=== PATIENT | female | born 1985 | race Two or more races ===

== ENCOUNTER 2020-03-25 06:10 | Inpatient (IN) | payer OTHER ==
[2020-03-22 12:24] VITALS: BMI 27.1
[2020-03-25] MEDS ORDERED: VASOPRESSIN 20 UNITS/ML VIAL IV ONE (07:20)
[2020-03-25] MEDS ORDERED: fentaNYL CITRATE 250 MCG/5 ML VIAL ONE ×2 (07:23→08:51)
[2020-03-25] MEDS ORDERED: ROCURONIUM BROMIDE IVPB ONE (07:23)
[2020-03-25] MEDS ORDERED: PROPOFOL 20 ML ONE ×2 (07:23→10:33)
[2020-03-25] MEDS ORDERED: DEXAMETHASONE SOD PHOSPHATE 4 MG/1 ML VIAL ONE (07:24)
[2020-03-25] MEDS ORDERED: KETOROLAC TROMETHAMINE 30 MG/1 ML VIAL ONE (07:24)
[2020-03-25] MEDS ORDERED: ceFAZolin SODIUM 1 GM VIAL ONE (07:24)
[2020-03-25] MEDS ORDERED: BUPIVACAINE HCL/PF 0.25% (2.5MG/ML) 10 ML VIAL ONE (08:02)
[2020-03-25] MEDS ORDERED: DEXAMETHASONE SOD PHOSPHATE/PF 10 MG/ML SDV ONE (08:02)
[2020-03-25] MEDS ORDERED: MIDAZOLAM HCL 2 MG/2 ML SINGLE DOSE VIAL ONE ×2 (08:04)
--- NOTE | 2020-03-25 08:29 | HP ---
[facility] - Chief Complaint Chief Complaint: Leiomyomatous uterus History of Present Illness: 34 yo with leiomyomatous uterus and menorrhagia for abdominal myomectomy History Source: Patient Limitations to Obtaining History: No Limitations - Past Medical History Allergies/Adverse Reactions: Allergies Allergy/AdvReac Type Severity Reaction Status Date / Time Penicillins Allergy Intermediate Verified 03/25/20 07:37 nuts Allergy Severe Swelling Uncoded 03/25/20 07:37 ...LMP: 03/15/20 ...: No Heme/Onc: Yes: Anemia - Current Medications Current Medications: Home Medications Medication Instructions Recorded Esomeprazole Magnesium 40 mg PO DAILY 03/22/20 Ferrous Sulfate [Feosol] 325 mg PO DAILY 03/22/20 Semaglutide [Ozempic] 1 mg SQ WEEKLY 03/22/20 Venlafaxine HCl ER [Effexor Xr -] 37.5 mg PO DAILY 03/22/20 [facility]ellite Physical Exam - Physical Examination Vital Signs: Vital Signs Period Temp Pulse Resp BP Sys/Welch Pulse Ox Last 24 Hr 97.7 F 68 20 88/55 100 General Appearance: Well Nourished, Well Developed ENT: Clear Lung: Clear to auscultation Heart: Regular rate & rhythm Breasts: Soft, No masses bilaterally Abdomen: Soft Extremities: No edema Pelvic Exam: Within normal limits External Genitalia, Within normal limits Vagina, Within normal limits Cervix, Within normal limits [place], Other Uterus (15) Neurological: Intact, Alert, Oriented [facility]ellite Impression/Plan - Impression/Plan Impression: Leimyomatous uterus. Menorrhagia. anemai Operative Procedure: Abdominal myomectomy Date to be Performed: 03/25/20
[2020-03-25] MEDS ORDERED: NEOSTIGMINE METHYLSULFATE 0.5 MG/ML - 10 ML MDV ONE (09:31)
[2020-03-25] MEDS ORDERED: ACETAMINOPHEN 325 MG TABLET (FP) PO PRN (10:53)
[2020-03-25] MEDS ORDERED: oxyCODONE HCL 5 MG TABLET PO PRN (10:53)
[2020-03-25] MEDS ORDERED: DOCUSATE SODIUM 100 MG CAPSULE (FP) PO PRN (10:53)
[2020-03-25] MEDS ORDERED: ONDANSETRON 4 MG/2 ML VIAL IVPUSH PRN (10:53)
[2020-03-25] MEDS ORDERED: BISACODYL 5 MG TABLET.DR (FP) PO PRN (10:53)
[2020-03-25] MEDS ORDERED: LACTATED RINGERS SOLUTION 1,000 ML IV SCH (11:00)
[2020-03-25] MEDS ORDERED: ACETAMINOPHEN 1000 MG/100 ML VIAL (NON FORMULARY) IVPB ONE (11:01)
--- NOTE | 2020-03-25 11:04 | OP ---
Operative Note - Note: Operative Date: 03/25/20 Pre-Operative Diagnosis: Fibroids Operation: Open abdominal myomectomy, right ovarian cystectomy Findings: as dictated Post-Operative Diagnosis: Same as Pre-op Surgeon: Emelia Cummings Animal Care Provider: Hang Pike Anesthesiologist/SANDING LINE OPERATOR: Omar Ramos Anesthesia: General (Tap blocks) Specimens Removed: 15 myomas of various sizes, right ovarian cyst wall Estimated Blood Loss (mls): 100 Drains, Volume Out (mls): 150 (yellow urine) Fluid Volume Replaced (mls): 800 (ml LR) Operative Report Dictated: Yes
--- NOTE | 2020-03-25 11:07 | SURG ---
Surgery Car Parker Note Car Parker: Hang Pike PA-C (Suzy) Date of Service: 03/25/20 Diagnosis: Fibroids Procedure: Open abdominal myomectomy, right ovarian cystectomy I was present for the entirety of the operative procedure. For further detail, please refer to operative report. Visit type - Case Type Case Type: Scheduled - Emergency Emergency Visit: No - New patient This patient is new to me today: Yes Date on this admission: 03/25/20 - Critical Care Critical Care patient: No
[2020-03-25] MEDS ORDERED: HYDROmorphone HCl 2 MG/ML VIAL IVPUSH ONE (12:38)
[2020-03-25] MEDS ORDERED: HYDROmorphone HCl 2 MG/ML VIAL ONE (12:42)
[2020-03-25] MEDS ORDERED: HYDROmorphone HCl 2 MG/ML VIAL IVPB ONE (15:04)
[2020-03-25] MEDS ORDERED: HYDROmorphone HCL CARPU-JECT 2 MG/1 ML DISP.SYRIN IVPB ONE (15:04)
[2020-03-25] MEDS ORDERED: CEFAZOLIN 1 GM/D5W 1 GM/50 ML BAG IVPB SCH (16:00)
[2020-03-25] MEDS: CEFAZOLIN 1 GM/D5W 1 GM/50 ML BAG IVPB SCH (18:46)
[2020-03-25] MEDS: SODIUM CHLORIDE 1,000 ML IV SCH (18:49)
[2020-03-25] MEDS: IBUPROFEN 800 MG/8 ML IJ IVPB PRN (19:45)
[2020-03-25 21:02] LABS: HEMATOCRIT 37.3 % (32.4-45.2); HEMOGLOBIN 11.9 GM/dL (10.7-15.3); MCH 25.1 pg (25.7-33.7); MCHC 31.8 g/dl (32.0-36.0); MEAN PLT VOLUME 9.6 fl (7.5-11.1); PLATELET COUNT 185 K/MM3 (134-434); RBC 4.73 M/mm3 (3.60-5.2); RDW 19.8 % (11.6-15.6); WHITE BLOOD COUNT 15.2 K/mm3 (4.0-10.0)
[2020-03-25 21:24] LABS: BLOOD UREA NITROGEN 7.7 mg/dL (7-18); CALCIUM 8.3 mg/dL (8.5-10.1); CREATININE 0.9 mg/dL (0.55-1.3); POTASSIUM 4.3 mmol/L (3.5-5.1)
[2020-03-26] MEDS: oxyCODONE HCL 5 MG TABLET PO PRN ×3 (00:42→19:05)
[2020-03-26] MEDS: SIMETHICONE 80 MG TAB.CHEW (FP) PO PRN ×2 (00:43→10:05)
--- NOTE | 2020-03-26 00:47 | OP ---
DATE OF OPERATION: 03/25/2020 PREOPERATIVE DIAGNOSIS: Leiomyomatous uterus. POSTOPERATIVE DIAGNOSIS: Leiomyomatous uterus. OPERATION: Abdominal myomectomy and right ovarian cystectomy. SURGEON: Cassi Cummings MD. BALLAST INSPECTOR: AMIRAH Ordaz. ANESTHESIA: General. ANESTHESIOLOGIST: Aung Ramos MD. PROCEDURE: Patient was taken to the operating room, placed in supine position. Prepped and draped in usual sterile fashion. Pfannenstiel skin incision was made with the scalpel. Cautery was then used to go through layers of abdominal wall to the layers of fascia. Fascia was cut in the midline. Cautery was then used to open the fascia in a smiley fashion. Cem was then used to bluntly and sharply dissect the rectus muscles off the fascia. Muscle was split in the midline. Peritoneal cavity was entered, carried up and down. Leiomyomatous uterus was then exteriorized. Multiple myomas were palpated throughout the anterior and posterior aspect of the uterus. The uterus was exteriorized, and tourniquet was placed around the clear space of the broad ligament. Pitressin was then infiltrated both anterior and posterior. Transverse incision posterior remained after the pitressin was infiltrated approximately 6 cm. Myomas were removed using sharp and blunt technique. They were enucleated out. 2 Multiple large myomas were seen from the posterior aspect of the uterus and submitted. The stitches were then closed using 2-0 Vicryl suture in a continuous locking stitch followed by imbricating stitch with 2-0 V-Loc suture. Attention was then drawn to the anterior aspect of the uterus where two 3-cm myomas were palpated anteriorly. Myomas were then enucleated after cautery was then used to make an incision into serosa and muscles of uterus, and the cavity was then entered, and 2-cm myomas were removed. Multiple myomas were removed from the right side of the multiple myomas, and then cautery was used to cut the serosa and muscles, and the instrument was then used to grab the myomas, they were enucleated out. Anteriorly there were more myomas I removed, approximately 15 myomas removed out of the uterus both the anterior, posterior, and also on the right side of the uterus. Right ovarian cyst was noted, and that was removed and submitted to pathology. Cautery of the ovary was then done. Incisions were all closed using 2-0 Vicryl suture in a continuous locking stitch followed by 2-0 V-Loc suture on all the incisions. Interceed was then used to cover both anteriorly and posteriorly, and Interceed was then sewn onto the uterus. Hemostasis was achieved, uterus interiorized. Abdominal cavity cleaned with clean lap pads. Peritoneum closed using 0 Biosyn suture. Muscles approximated in the midline using 2-0 Vicryl sutures. Fascia then closed using 0 Vicryl sutures in 2 parts. Skin was then closed using 3-0 Vicryl in subcuticular fashion. The wound was washed and dressed. Patient tolerated procedure well. Taken to recovery in stable condition. ESTIMATED BLOOD LOSS: Approximately 100 mL. CASSI CUMMINGS M.D. [id number] MTDD
[2020-03-26] MEDS: CEFAZOLIN 1 GM/D5W 1 GM/50 ML BAG IVPB SCH ×2 (02:25→11:35)
[2020-03-26] MEDS: IBUPROFEN 800 MG/8 ML IJ IVPB PRN (03:52)
[2020-03-26] MEDS: SODIUM CHLORIDE 1,000 ML IV SCH ×2 (03:52→12:22)
[2020-03-26 08:41] LABS: HEMATOCRIT 33.9 % (32.4-45.2); HEMOGLOBIN 10.9 GM/dL (10.7-15.3); MCH 25.3 pg (25.7-33.7); MCHC 32.1 g/dl (32.0-36.0); MEAN CELL VOLUME 78.8 fl (80-96); MEAN PLT VOLUME 9.7 fl (7.5-11.1); PLATELET COUNT 181 K/MM3 (134-434); RDW 19.5 % (11.6-15.6)
--- NOTE | 2020-03-26 08:52 | PN ---
Progress Note (short form) - Note Progress Note: POD 1, s/p open Myomectomy Pt seen and examined. Reports she is having some pain this AM. Has not been oob yet. Collado was removed this morning. Has not passed flatus. Denies cp/sob, n/v/d. Vital Signs Temp 98.4 F 03/26/20 05:00 Pulse 87 03/26/20 05:00 Resp 18 03/25/20 21:00 BP 102/58 L 03/26/20 05:00 Pulse Ox 100 03/25/20 21:00 Intake & Output 03/25/20 03/25/20 03/26/20 11:59 23:59 11:59 Intake Total 900 300 Output Total 250 400 700 Balance 650 -100 -700 Intake: IV 900 250 Normal Saline - 1,000 ml 250 @ 125 mls/hr IV ASDIR ANDRE Rx#:[id number] IVPB 50 Oral 0 Output: Urine 150 400 700 Collado 700 Estimated Blood Loss 100 Other: Voiding Method Indwelling Catheter Bowel Movement No CBC, BMP 03/26/20 06:35 03/26/20 06:35 Gen: awake, alert, nad Resp: unlabored on RA Abdo: soft, + ttp at incision site (appropriate to status), dressing c/d/i, steristrips in place with no drainage noted. No erythema Ext: b/l calves soft/nt A/P: 34 y/o F w/ PMHx GERD, fibroids, now POD 1, s/p open Myomectomy. afebrile, vss h/h noted -TOV -Pain control with oxy 5/10 prn,ibuprofen 800mg iv prn -OOB ad natalio -DVT prophylaxis with Lovenox 40qd, scds -Zofran prn -Bowel regimen -Plan for d/c tomorrow message sent to Dr Cummings regarding above
[2020-03-26 09:08] LABS: BLOOD UREA NITROGEN 7.8 mg/dL (7-18); CREATININE 1.1 mg/dL (0.55-1.3); POTASSIUM 3.5 mmol/L (3.5-5.1)
[2020-03-26] MEDS ORDERED: PT OWN MED DRAWER 7, Y5N ONE (10:00)
[2020-03-26] MEDS: FERROUS SO4 325 MG TABLET (FP) PO SCH (10:05)
[2020-03-26] MEDS: PANTOPRAZOLE 40 MG TABLET PO SCH (10:05)
[2020-03-26] MEDS: VENLAFAXINE HCL 37.5 MG E.R. CAPSULE PO SCH (10:06)
[2020-03-26] MEDS: ENOXAPARIN NA (PORCINE) 40 MG/0.4 ML DISP.SYRIN SQ SCH (10:09)
--- NOTE | 2020-03-26 11:27 | PN ---
Progress Note (short form) - Note Progress Note: POD #1 s/p open myomectomy under GETA with bilateral TAP blocks. Pain controlled with Rx, denies n/v. Doing well, all questions answered.
[2020-03-27] MEDS: oxyCODONE HCL 5 MG TABLET PO PRN ×3 (00:03→16:08)
[2020-03-27] MEDS ORDERED: PT OWN MED DRAWER 7, Y5N ONE (09:09)
[2020-03-27] MEDS: SIMETHICONE 80 MG TAB.CHEW (FP) PO PRN ×2 (09:10→14:07)
[2020-03-27] MEDS: PANTOPRAZOLE 40 MG TABLET PO SCH (09:10)
[2020-03-27] MEDS: FERROUS SO4 325 MG TABLET (FP) PO SCH (09:10)
[2020-03-27] MEDS: VENLAFAXINE HCL 37.5 MG E.R. CAPSULE PO SCH (09:10)
[2020-03-27] MEDS: ENOXAPARIN NA (PORCINE) 40 MG/0.4 ML DISP.SYRIN SQ SCH (09:10)
--- NOTE | 2020-03-27 10:00 | DS ---
Physical Exam: SUBJECTIVE: Pt seen and examined. Reports pain is slightly more manageable today. Tolerating PO, voiding without issue. Passing flatus, had a large bm yesterday. Denies cp/sob, n/v/d. OBJECTIVE: Vital Signs Period Temp Pulse Resp BP Sys/Welch Pulse Ox Last 24 Hr 98.4 F-99.8 F 90-107 18-20 105-132/63-74 99-99 PHYSICAL EXAM Gen: awake, alert, nad Resp: unlabored on RA Abdo: soft, + ttp at incision site (appropriate to status), dressing c/d/i, steristrips in place with no drainage noted. No erythema Ext: b/l calves soft/nt LABS HOSPITAL COURSE: The patient was admitted to the Med-Surg Unit after an elective repair of her leiomyomas/pelvic pain. Now, s/p open abdominal myomectomy. Pain management was achieved with a narcotic and non-narcotic oral and IV regimen. POD #1, the patient passed flatus and diet was advanced. Hemoglobin and hematocrit were monitored as well as vitals and remained stable throughout admission. Miladis-operative IV ABX were administered. DVT prophylaxis was achieved with Lovenox 40mg qd, SCDs and early ambulation. The patient ambulated the halls without issue. Narcotic scripts were checked with [facility]ACH[facility] OPERATOR HELPER prior to escribe. The discharge instructions and an oral pain management plan were reviewed with the patient. All questions answered. Above plan discussed with Dr. Cummings and agreed. Date of Admission:03/25/20 Date of Discharge: 03/27/20 Minutes to complete discharge: 35 Discharge Summary Problems reviewed: Yes Reason For Visit: FIBROIDS - Instructions Diet, Activity, Other Instructions: Dr. Emelia Cummings Clinical Dermatologist discharge instructions Physical activity Resume your normal everyday activity as tolerated no heavy lifting or exercise until seen by your surgeon. You may walk unlimited vahe of and climb stairs. You may resume driving the car when you feel safe and comfortable behind the wheel. No sexual activity as instructed by Dr. Cummings. Wound care If you have a bandage, leave it on, and keep dry for 48-72 hours. After that time discard the outer bandage. If they are tapes on the skin under the out of bandage leave them in place. They will peel off in the next 7 to 10 days. Do Not Peel them off. You may shower the day after surgery. If there are tapes present on the skin, you may shower over them. Diet There are no dietary restrictions. Eat healthy, high-fiber foods. Drink 6 to 8 glasses of liquid each day. This will assist in keeping your bowels are regular. Pain management You may take Tylenol or acetaminophen or Ibuprofen (for example, Motrin, Advil etc.) from my pain prescription medication is ordered should be taken as prescribed for moderate to severe pain. Call Dr. Cummings for any of the following: Severe pain not relieved by medication Fever of 101 or higher Excessive bleeding or drainage on dressing Inability to urinate ISTOP: [phone] Call the office at [phone] for an appointment in seven days. Referrals: Emelia Cummings MD [Staff Physician] - Disposition: HOME - Home Medications Comprehensive Discharge Medication List: Ambulatory Orders Esomeprazole Magnesium 40 mg PO DAILY 03/22/20 Ferrous Sulfate [Feosol] 325 mg PO DAILY 03/22/20 Semaglutide [Ozempic] 1 mg SQ WEEKLY 03/22/20 Venlafaxine HCl ER [Effexor Xr -] 37.5 mg PO DAILY 03/22/20 This patient is new to me today: Yes Date on this admission: 03/27/20 Emergency Visit: No Critical Care patient: No - Discharge Referral Referred to [facility] Med P.C.: No
[2020-03-27] MEDS: SODIUM CHLORIDE 1,000 ML IV SCH (11:15)
[2020-03-27 14:33] VITALS: BP 127/77; PULSE 109; TEMP 97.9
--- NOTE | 2020-03-27 15:23 | PATH ---
Surgical Pathology Report Patient Name: ROBINSON ALEXIS [facility]. Rec. #: [id number] /Age/Gender: 1985 (Age: 34) / F Account: [id number] Location: [address] [place] [address]/[facility] Taken: 03/25/2020 Received: 03/25/2020 Reported: 03/27/2020 Physicians: Emelia Cummings M.D. Specimen(s) Received A: FIBROIDS B: RIGHT OVARIAN CYST WALL Clinical History Fibroids Final Diagnosis A. FIBROIDS, ABDOMINAL MYOMECTOMY: 215 G, LEIOMYOMA(TA). B. OVARIAN CYST, WALL, RIGHT, CYSTECTOMY: HEMORRHAGIC CORPUS LUTEUM CYST, FRAGMENTS. Electronically Signed Jacque Mills M.D. Gross Description A. Received in formalin labeled "fibroids," is a 215 g aggregate of 14 gilbert, firm to rubbery nodules, consistent with fibroids. The fibroids range from 1.3-6.0 cm in greatest dimension. Sectioning reveals gilbert, rubbery parenchyma with a whorled architecture. No areas of hemorrhage or necrosis are identified. Senior Lead Java Developer sections are submitted in 9 cassettes as follows: 1-4-one product sales representative section of each of the smallest fibroids; 5-6-second largest fibroid; 7-9-largest fibroid. B. Received in formalin labeled "right ovarian cyst wall," are 4 gilbert-yellow to brown, irregular portions of soft tissue ranging from 1.1 x 0.6 x 0.2 cm to 1.7 x 1.0 x 0.8 cm, consistent with portions of a disrupted cyst. The larger portions are sectioned and the specimen is entirely submitted in 2 cassettes. /03/26/2020 saudi/03/26/2020
== END 2020-03-27 17:17 | disposition home or self-care (01) | DRG 743 ==
LOC: J2C 06:10 → J6S 15:30
PROVIDERS: ADMIT Obstetrics & Gynecology; ATTEND Obstetrics & Gynecology
PROC: 0UB00ZZ Excision of Right Ovary, Open Approach (ICD-10-PCS; 2020-03-25)
PROC: 0UB90ZZ Excision of Uterus, Open Approach (ICD-10-PCS; principal; 2020-03-25 08:00)
DX: D25.9 Leiomyoma of uterus, unspecified (principal); N83.11 Corpus luteum cyst of right ovary; K21.9 Gastro-esophageal reflux disease without esophagitis
CPT/HCPCS: 36415; 80048; 84703; 85027; 86850; 86900; 86901; 88305-TC; 88307-TC; 94010; 94760; J0131

== ENCOUNTER 2025-02-12 05:50 | Day surgery (SDC) | payer BC ==
[2025-02-08 18:01] VITALS: BMI 27.3
[2025-02-12] MEDS ORDERED: DEXAMETHASONE SOD PHOSPHATE 4 MG/1 ML VIAL ONE (15:38)
[2025-02-12] MEDS ORDERED: KETOROLAC TROMETHAMINE 30 MG/1 ML VIAL ONE (15:38)
[2025-02-12] MEDS ORDERED: PROPOFOL 20 ML ONE (15:38)
[2025-02-12] MEDS ORDERED: ONDANSETRON 4 MG/2 ML VIAL ONE (15:38)
[2025-02-12] MEDS ORDERED: MIDAZOLAM HCL 2 MG/2 ML SINGLE DOSE VIAL ONE (15:38)
[2025-02-12] MEDS ORDERED: LIDOCAINE HCL/PF 2% SDV 5ML VIAL ONE (15:38)
[2025-02-12] MEDS ORDERED: ceFAZolin SODIUM 1 GM VIAL ONE (16:24)
[2025-02-12] MEDS: ceFAZolin SODIUM 1 GM VIAL IVPB ONE (16:27)
[2025-02-12] MEDS ORDERED: ONDANSETRON 4 MG/2 ML VIAL IVPUSH PRN (17:11)
[2025-02-12] MEDS ORDERED: LACTATED RINGERS SOLUTION 1,000 ML IV SCH (17:15)
[2025-02-12 19:09] VITALS: RESP 18
[2025-02-12 19:38] VITALS: BP 96/56; PULSE 89; TEMP 97.5
== END 2025-02-12 19:35 | disposition home or self-care (01) ==
LOC: JASU-SURG 05:50
PROVIDERS: ATTEND Obstetrics & Gynecology
PROC: 0UB98ZZ Excision of Uterus, Via Natural or Artificial Opening Endoscopic (ICD-10-PCS; principal; 2025-02-12 14:15)
DX: D25.9 Leiomyoma of uterus, unspecified (principal); N92.0 Excessive and frequent menstruation with regular cycle; Z97.5 Presence of (intrauterine) contraceptive device
CPT/HCPCS: 81025; 88300-TC; 88305-TC; 94760